=== PATIENT | female | born 1940 ===

== ENCOUNTER 2017-03-30 05:51 | Day surgery (SDC) | payer OTHER ==
[2017-03-21 10:53] VITALS: BMI 24.4
[2017-03-30] MEDS ORDERED: Tropicamide 1% Opht SOLUTION OS SCH (06:00)
[2017-03-30] MEDS ORDERED: Flurbiprofen 0.03% Opht SOLN OS SCH (06:00)
[2017-03-30] MEDS ORDERED: Ciprofloxacin 0.3% OPTH SOLN OS SCH (06:00)
[2017-03-30] MEDS ORDERED: Lactated Ringer's 500 ML IV ONE (06:00)
[2017-03-30] MEDS ORDERED: Phenylephrine 2.5% Opht Soln OS SCH (06:00)
[2017-03-30] MEDS ORDERED: Cyclopentolate 1% Opth (2 ml) OS SCH (06:00)
[2017-03-30] MEDS ORDERED: Lactated Ringer's 1,000 ML IV ONE (06:45)
[2017-03-30] MEDS ORDERED: Carbachol 0.01% IO ONE ×2 (07:34→09:08)
[2017-03-30] MEDS ORDERED: Tobramycin/Dexamethasone OPHT OINT ONE (07:35)
[2017-03-30] MEDS ORDERED: Chondroitin/Hyaluronate Opth Syringe KIT (0.55 ml-0.5 ml) IO ONE (07:37)
[2017-03-30] MEDS ORDERED: Midazolam 2 MG/2 ML VIAL ONE (07:55)
[2017-03-30] MEDS: Tetracaine 0.5% Ophth (OR ONLY) ONE ×2 (08:07→08:20)
[2017-03-30] MEDS: Povidone Iodine Ophthalmic 5% Soln ONE ×2 (08:08→08:26)
[2017-03-30] MEDS: Hyaluronidase Human, Recombi 150 U/ML VIAL ONE ×2 (08:08→08:26)
[2017-03-30] MEDS: Lidocaine 2% Inj (20ml) ONE ×2 (08:09→08:26)
[2017-03-30] MEDS ORDERED: Chondroitin/Hyaluronate 40 mg/ml-30 mg/ml Ophth Syringe (0.5 ml) IO ONE ×2 (08:44→08:58)
[2017-03-30 12:34] VITALS: BP 125/64; PULSE 81; RESP 18; TEMP 98.4; O2SAT 98
--- NOTE | 2017-03-30 13:02 | OP ---
PROCEDURE DATE: 03/30/2017 PREOPERATIVE DIAGNOSIS: Hypermature cataract, left eye. POSTOPERATIVE DIAGNOSIS: Hypermature cataract, left eye. PROCEDURE: Phacoemulsification left eye, insertion of posterior chamber implant with utilization of capsular dye. SURGEON: Raúl Avery MD ANESTHESIA: Local with IV sedation. DESCRIPTION OF PROCEDURE: The patient was brought into the operating room and placed in supine position, prepped and draped in the usual fashion for ophthalmic surgery. Lid speculum inserted, lids and exposing globe. On inspection, there was noted to be a hypermature cataract. A side-port incision was made superiorly and inferiorly with disposable sharp blade. An air bubble was injected in the anteriorchamber followed by capsular dye to stain the anteriorcapsule. The dye was irrigatedout of the anteriorchamberwith balanced salt solution. The anterior chamber was deepened with Viscoat. A near clear corneal incision was made temporally with a 2.75-mm keratome. Capsulorrhexis was performed with Utrata forceps. Hydrodissection was carried out with balanced salt solution. The nucleus was then phacoemulsified. Remaining cortical fragments were aspirated with a split irrigation and aspiration system. The capsular sac was filled with Provisc. Posterior chamber lens was injected into the sac and rotated into horizontal position. Provisc was aspirated out of the anterior chamber. Pupil was constricted with Miochol. The wound was hydrated with balanced salt solution and found to be watertight. Topical Timoptic, Betadine, TobraDex ointment, and pressure patch were applied. The patient tolerated the procedure well. Raúl Avery MD
== END 2017-03-30 10:50 | disposition home or self-care (01) ==
LOC: C.SDS 05:51
PROVIDERS: ATTEND Ophthalmology
DX: H25.12 Age-related nuclear cataract, left eye (principal)
CPT/HCPCS: 66984; J2250; J3010; J3470; J7120; V2632

== ENCOUNTER 2017-03-31 15:43 | Day surgery (SDC) | payer OTHER ==
[~2017-03-31 15:43] MED LIST: Ciprofloxacin 0.3% OPTH SOLN OS SCH; Cyclopentolate 1% Opth (2 ml) OS SCH; Flurbiprofen 0.03% Opht SOLN OS SCH; Lactated Ringer's 500 ML IV ONE; Phenylephrine 2.5% Opht Soln OS SCH; Tropicamide 1% Opht SOLUTION OS SCH
[2017-03-31 16:14] VITALS: O2SAT 100
[2017-03-31] MEDS ORDERED: Carbachol 0.01% IO ONE ×2 (16:39→18:32)
[2017-03-31] MEDS ORDERED: Gentamicin 80 mg/2mL Inj. ONE (16:40)
[2017-03-31] MEDS ORDERED: MethylPREDNISolone 40 mg Vial ONE (16:40)
[2017-03-31] MEDS: Chondroitin/Hyaluronate Opth Syringe KIT (0.55 ml-0.5 ml) IO ONE ×2 (16:51→18:17)
[2017-03-31] MEDS: Hyaluronidase Human, Recombi 150 U/ML VIAL ONE ×2 (16:53→18:08)
[2017-03-31] MEDS: Povidone Iodine Ophthalmic 5% Soln ONE ×2 (16:54→18:17)
[2017-03-31] MEDS: Tetracaine 0.5% Ophth (OR ONLY) ONE ×2 (16:55→18:17)
[2017-03-31] MEDS: Tobramycin/Dexamethasone OPHT OINT ONE ×2 (16:56→18:50)
[2017-03-31] MEDS ORDERED: Lactated Ringer's 500 ML IV ONE ×2 (18:08→18:55)
[2017-03-31] MEDS ORDERED: Midazolam 2 MG/2 ML VIAL ONE (18:17)
[2017-03-31] MEDS ORDERED: Propofol 10 mg/ml Inj (20 ML) ONE (18:17)
[2017-03-31] MEDS ORDERED: VANCOMYCIN IV ONE (19:00)
[2017-03-31] MEDS ORDERED: CEFTAZIDIME IV ONE (19:00)
[2017-03-31] MEDS ORDERED: WATER FOR INJECTION IV ONE ×2 (19:00)
--- NOTE | 2017-03-31 20:07 | OP ---
PROCEDURE DATE: 03/31/2017 PREOPERATIVE DIAGNOSIS: Corneal wound leak left eye. POSTOPERATIVE DIAGNOSIS: Text. PROCEDURE: Anterior vitrectomy left eye repair of would leak. SURGEON: Raúl Avery MD TYPE OF ANESTHESIA: Local IV sedation. DESCRIPTION OF PROCEDURE: The patient was brought into the operating room, placed in supine position, prepped and draped in the usual fashion for ophthalmic surgery. Lid speculum was inserted, lids and exposing globe. On inspection there was noted to be a posterior chamber lens implant in good position in the capsular sac. There was noted also a side port incision superiorly and inferiorly and a keratome incision temporally. Through the inferior side port incision there was noted vitreus and iris extending into the wound. The externalized vitreus is then cut and removed with Adela scissors. A side-port incision inferiorly and a keratome incision were then reopened and infusion cannula were placed through the side port incision and a vitrector placed through the keratome incision and the iris was repositioned in the anterior chamber and vitreus was removed with a vitrectomy. Pupil constricted to 3 mm with each wound was sutured with 1-10 of Prolene suture and subconjunctival vancomycin and dexamethasone was then injected. Pressures pads applied. Raúl Avery MD
[2017-03-31 20:59] VITALS: BP 163/73; PULSE 72; RESP 16; TEMP 98.2
== END 2017-03-31 20:25 | disposition home or self-care (01) ==
LOC: C.SDS 15:43
PROVIDERS: ATTEND Ophthalmology
DX: T81.31XA Disruption of external operation (surgical) wound, not elsewhere classified, initial encounter (principal); H18.892 Other specified disorders of cornea, left eye; I10 Essential (primary) hypertension; Z79.899 Other long term (current) drug therapy; Y83.1 Surgical operation with implant of artificial internal device as the cause of abnormal reaction of the patient, or of later complication, without mention of misadventure at the time of the procedure
CPT/HCPCS: 67005; J1580; J2250; J2704; J2920; J3470; J7120